=== PATIENT | male | born 1970 | race American Indian/Alaskan Native ===

== ENCOUNTER 2017-08-17 12:00 | Emergency (ER) | payer MEDICAID, OTHER ==
[2017-08-17] MEDS ORDERED: Nitroglycerin 0.4 MG Tab.SL SL PRN (12:29)
[2017-08-17] MEDS ORDERED: Sodium Chloride 0.9% 10 ML Syringe FLUSH PRN (12:29)
[2017-08-17 12:51] VITALS: BP 106/70
[2017-08-17 13:11] LABS: ANION GAP 12.9; CHLORIDE,CL 105 mmol/L (101-111); SODIUM,NA 137 mmol/L (135-145)
--- NOTE | 2017-08-17 13:35 | EDM.PDOC ---
ED HPI GENERAL MEDICAL PROBLEM - General Chief Complaint: Upper Extremity Injury/Pain Stated Complaint: CHEST PAINS, CRAMPS,DIZZY [id number] Time Seen by Provider: 08/17/17 12:30 - History of Present Illness INITIAL COMMENTS - FREE TEXT/NARRATIVE: Cody is a 46-year-old man with a history of coronary artery disease and angina , who presents with 2 concerns today. First, he states that since about 6:00 this morning, he has been having some occasional pain in his left chest. He states it does not seem to necessarily be worse with movement or exertion. Cody has had significant coronary disease, and has had numerous angiograms in the past. He does have nitroglycerin at home, but was coming into the ER for his shoulder anyway and so wants to be seen for this. He has had no recent fevers or chills, no cough. Second problem today, Cody had rotator cuff repair to his left shoulder 3 weeks ago. He states that he has been advanced to physical therapy at this point, but over the last few days is now having severe pain with his shoulder. He states it is very difficult to move his shoulder at this point, he has been trying to keep it against his side if possible Left Shoulder Pain Score (Numeric/FACES): 5 - Related Data Allergies Allergy/AdvReac Type Severity Reaction Status Date / Time No Known Allergies Allergy Verified 08/17/17 12:08 Home Meds: Home Meds Aspirin [Radha Chewable] 81 mg PO DAILY 11/07/13 [History] Atenolol [Tenormin] 25 mg PO DAILY 11/07/13 [History] Lisinopril 40 mg PO DAILY 11/07/13 [History] Nitroglycerin [Nitrostat] 0.4 mg SL ASDIRECTED PRN 11/07/13 [History] atorvaSTATin [Lipitor] 80 mg PO BEDTIME 11/07/13 [History] Hydrocodone/Acetaminophen [Hydrocodon-Acetaminophn 10-325] 0.5 - 1 tab PO Q8H PRN 3 Days #9 tablet 08/17/17 [Rx] Past Medical History Cardiovascular History: Reports: High Cholesterol, Hypertension Endocrine/Metabolic History: Reports: Diabetes, Type II - Past Surgical History Cardiovascular Surgical History: Reports: Coronary Artery Stent Musculoskeletal Surgical History: Reports: Shoulder Surgery Social & Family History - Tobacco Use Smoking Status *Q: Never Smoker Second Hand Smoke Exposure: No - Recreational Drug Use Recreational Drug Use: Yes Recreational Drug Type: Reports: Marijuana/Hashish Recreational Drug Use Frequency: Weekly Review of Systems - Review of Systems Review Of Systems: ROS reveals no pertinent complaints other than HPI. ED EXAM, GENERAL - Physical Exam Exam: See Below Free Text/Narrative:: General: Cody is a pleasant 46-year-old man in no acute distress Oropharynx: Clear, no exudates or petechia noted Neck: Supple, no lymphadenopathy Lungs: Clear to auscultation throughout Heart: Regular rate and rhythm, no murmurs, rubs or gallops Left shoulder: He has significant pain over his deltoid on that shoulder. I did not do much manipulation of his shoulder because of his recent surgery. I do not notice any significant erythema or bruising over that shoulder Course - Vital Signs Last Recorded V/S: Last Vital Signs Temp 36.9 C 08/17/17 12:09 Pulse 67 08/17/17 12:09 Resp 16 08/17/17 12:09 BP 106/70 08/17/17 12:48 Pulse Ox 97 08/17/17 12:09 - Orders/Labs/Meds Orders: Active Orders 24 hr Category Date Time Status Cardiac Monitoring [RC] . DIRECTED Care 08/17/17 12:29 Active EKG Documentation Completion [RC] STAT Care 08/17/17 12:29 Active Peripheral IV Care [RC] . DIRECTED Care 08/17/17 12:30 Active Nitroglycerin [Nitrostat] Med 08/17/17 12:29 Active 0.4 mg SL Q5M PRN Sodium Chloride 0.9% [Saline Flush] Med 08/17/17 12:29 Active 10 ml FLUSH ASDIRECTED PRN Peripheral IV Insertion Adult [OM.PC] Stat Oth 08/17/17 12:29 Ordered Medication Orders Nitroglycerin (Nitrostat) 0.4 mg SL Q5M PRN PRN Reason: Chest Pain Stop: 08/18/17 12:30 Last Admin: 08/17/17 12:48 Dose: 0.4 mg Sodium Chloride (Saline Flush) 10 ml FLUSH ASDIRECTED PRN PRN Reason: Keep Vein Open Last Admin: 08/17/17 12:46 Dose: 10 ml Labs: Laboratory Tests 08/17/17 08/17/17 Range/Units 12:46 12:46 WBC 8.2 (5.0-10.0) 10^3/uL RBC 5.25 (4.6-6.2) 10^6/uL Hgb 14.8 D (14.0-18.0) g/dL Hct 44.7 (40.0-54.0) % MCV 85.1 (80-100) fL MCH 28.2 (27.0-34.0) pg MCHC 33.1 (33.0-35.0) g/dL Plt Count 269 (150-450) 10^3/uL Neut % (Auto) 63.8 (42.2-75.2) % Lymph % (Auto) 23.2 (20.5-50.1) % [place] % (Auto) 9.9 H (2-8) % Eos % (Auto) 2.9 (1.0-3.0) % Baso % (Auto) 0.2 (0.0-1.0) % Sodium 137 (135-145) mmol/L Potassium 3.9 (3.6-5.0) mmol/L Chloride 105 (101-111) mmol/L Carbon Dioxide 23.0 (21.0-31.0) mmol/L Anion Gap 12.9 BUN 13 (7-18) mg/dL Creatinine 0.9 (0.6-1.3) mg/dL Est Cr Clr Drug Dosing 99.22 mL/min Estimated GFR (MDRD) > 60 BUN/Creatinine Ratio 14.44 Glucose 98 (74-105) mg/dL Calcium 9.3 (8.4-10.2) mg/dl Total Bilirubin 0.7 (0.2-1.0) mg/dL AST 22 (10-42) IU/L ALT 23 (10-60) IU/L Alkaline Phosphatase 67 (42-121) IU/L Troponin I < 0.02 (0.00-0.02) ng/ml Total Protein 7.9 (6.7-8.2) g/dl Albumin 4.1 (3.2-5.5) g/dl Globulin 3.8 Albumin/Globulin Ratio 1.08 Meds: Medications Generic Name Dose Route Start Last Admin Trade Name Freq PRN Reason Stop Dose Admin Nitroglycerin 0.4 mg 08/17/17 12:29 08/17/17 12:48 Nitrostat SL 08/18/17 12:30 0.4 mg Q5M PRN Administration Chest Pain Sodium Chloride 10 ml 08/17/17 12:29 08/17/17 12:46 Saline Flush FLUSH 10 ml ASDIRECTED PRN Administration Keep Vein Open Departure - Departure Time of Disposition: 13:34 Disposition: Home, Self-Care 01 Clinical Impression: Stable angina pectoris Shoulder pain, acute Qualifiers: Laterality: left Qualified Code(s): M25.512 - Pain in left shoulder - Discharge Information Prescriptions: Hydrocodone/Acetaminophen [Hydrocodon-Acetaminophn 10-325] 0.5 - 1 tab PO Q8H PRN 3 Days #9 tablet PRN Reason: Pain Instructions: Angina Pectoris, [id number] Forms: ED Department Discharge Additional Instructions: Call both physical therapy and your surgeon tomorrow to let them know you are having increased pain - My Orders Last 24 Hours: My Active Orders 08/17/17 12:29 Cardiac Monitoring [RC] . DIRECTED EKG Documentation Completion [RC] STAT Nitroglycerin [Nitrostat] 0.4 mg SL Q5M PRN Sodium Chloride 0.9% [Saline Flush] 10 ml FLUSH ASDIRECTED PRN Peripheral IV Insertion Adult [OM.PC] Stat 08/17/17 12:30 Peripheral IV Care [RC] . DIRECTED - Assessment/Plan Last 24 Hours: My Active Orders 08/17/17 12:29 Cardiac Monitoring [RC] . DIRECTED EKG Documentation Completion [RC] STAT Nitroglycerin [Nitrostat] 0.4 mg SL Q5M PRN Sodium Chloride 0.9% [Saline Flush] 10 ml FLUSH ASDIRECTED PRN Peripheral IV Insertion Adult [OM.PC] Stat 08/17/17 12:30 Peripheral IV Care [RC] . DIRECTED
--- NOTE | 2017-08-18 11:20 | EKG ---
08/17/2017- JAYLA MUSE - This is a standard 12-lead EKG showing normal sinus rhythm with a ventricular rate 62 beats per minute. Normal MI interval, QRS duration. Normal axis. No significant ST-T changes. Normal EKG. [facility] /[id number]
== END 2017-08-17 13:36 | disposition home or self-care (01) ==
LOC: DL.ED 12:00
DX: I20.9 Angina pectoris, unspecified (principal); M25.512 Pain in left shoulder; E11.9 Type 2 diabetes mellitus without complications; E78.00 Pure hypercholesterolemia, unspecified; I10 Essential (primary) hypertension; Z79.82 Long term (current) use of aspirin; Z79.899 Other long term (current) drug therapy
CPT/HCPCS: 36415; 80053; 84484; 85025; 93005; 99285; A9270; J7050

== ENCOUNTER 2021-02-25 17:08 | Emergency (ER) | payer MEDICAID, OTHER ==
[2021-02-25] MEDS ORDERED: Lidocaine 2% with EPINEPHrine 1:200,000 20 ML SDV INJECT ONE (17:38)
[2021-02-25] MEDS ORDERED: Lidocaine 1% with EPINEPHrine 1:100,000 20 ML MDV INJECT ONE (17:46)
--- NOTE | 2021-02-25 17:58 | EDM.PDOC ---
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 The pt was struck with the screwdriver in the head and sustained a laceration to the forehead. no LOC. No physical complaints other than the lac. Neg blood thinners. Tetanus is up to date. Onset: Today, Sudden Duration: Hour(s): Face/Facial Pain Score (Numeric/FACES): 3 - Related Data Allergies Allergy/AdvReac Type Severity Reaction Status Date / Time No Known Allergies Allergy Verified 02/25/21 17:41 Home Meds: Home Meds Aspirin [Radha Chewable] 81 mg PO DAILY 11/07/13 [History] Atenolol [Tenormin] 25 mg PO DAILY 11/07/13 [History] Lisinopril 40 mg PO DAILY 11/07/13 [History] Nitroglycerin [Nitrostat] 0.4 mg SL ASDIRECTED PRN 11/07/13 [History] atorvaSTATin [Lipitor] 80 mg PO BEDTIME 11/07/13 [History] Hydrocodone/Acetaminophen [Hydrocodone-Acetamin 10-325 mg] 0.5 - 1 tab PO Q8H PRN 3 Days #9 tablet 08/17/17 [Rx] Past Medical History Cardiovascular History: Reports: High Cholesterol, Hypertension Endocrine/Metabolic History: Reports: Diabetes, Type II - Past Surgical History Cardiovascular Surgical History: Reports: Coronary Artery Stent Musculoskeletal Surgical History: Reports: Shoulder Surgery Social & Family History - Tobacco Use Tobacco Use Status *Q: Never Tobacco User Second Hand Smoke Exposure: No - Caffeine Use Caffeine Use: Reports: Coffee - Recreational Drug Use Recreational Drug Use: Yes Recreational Drug Type: Reports: Marijuana/Hashish ED ROS GENERAL - Review of Systems Review Of Systems: Comprehensive ROS is negative, except as noted in HPI. ED EXAM, SKIN/RASH Exam: See Below Exam Limited By: No Limitations General Appearance: Alert, No Apparent Distress Head: Other (7 cm lac to mid forhead running vertically) Respiratory/Chest: No Respiratory Distress, Lungs Clear, Normal Breath Sounds, No Accessory Muscle Use, Chest Non-Tender Cardiovascular: Normal Peripheral Pulses, Regular Rate, Rhythm, No Edema, No Gallop, No JVD, No Murmur, No Rub ED SKIN PROCEDURES - Laceration/Wound Repair Anterior Forehead Appearance: Subcutaneous Local Anesthesia - Lidocaine (Xylocaine): 1% with EPI Local Anesthetic Volume: 5cc Skin Prep: Saline Exploration/Debridement/Repair: Wound Explored Closed with: Sutures Lac/Wound length In cm: 8 Suture Size: 4-0 # of Sutures: 12 Suture Type: Interrupted Sterile Dressing Applied: Nurse Course - Vital Signs Last Recorded V/S: Last Vital Signs Temp 97.5 F 02/25/21 17:40 Pulse 105 H 02/25/21 17:40 Resp 18 02/25/21 17:40 BP 161/108 H 02/25/21 17:40 Pulse Ox 97 02/25/21 17:40 - Orders/Labs/Meds Meds: Medications Discontinued Medications Generic Name Dose Route Start Last Admin Trade Name Ney PRN Reason Stop Dose Admin Lidocaine/Epinephrine 20 ml 02/25/21 17:38 02/25/21 17:53 Lidocaine 2% With Epinephrine 1:200,000 20 Ml Sdv INJECT 02/25/21 17:39 Not Given ONETIME ONE Lidocaine/Epinephrine 20 ml 02/25/21 17:46 02/25/21 17:53 Lidocaine 1% With Epinephrine 1:100,000 20 Ml Mdv INJECT 02/25/21 17:47 20 ml ONETIME ONE Administration Departure - Departure Time of Disposition: 18:36 Disposition: Home, Self-Care 01 Condition: Good Clinical Impression: Laceration of forehead Qualifiers: Encounter type: initial encounter Qualified Code(s): S01.81XA - Laceration without foreign body of other part of head, initial encounter - Discharge Information *PRESCRIPTION DRUG MONITORING PROGRAM REVIEWED*: Not Applicable *COPY OF PRESCRIPTION DRUG MONITORING REPORT IN PATIENT FRANK: Not Applicable Instructions: Laceration Care, Adult Forms: ED Department Discharge Additional Instructions: Keep wound clean and dry for 24 hours. Use triple antibiotic ointment or bacitracin on the wound until the sutures are removed. Keep stitches in for 10- 14 days. If any new symptoms or concerns develop contact your primary care facility or return to the ER. Sepsis Event Note (ED) - Evaluation Sepsis Screening Result: No Definite Risk - Focused Exam Vital Signs: Vital Signs Temp Pulse Resp BP Pulse Ox 02/25/21 17:40 97.5 F 105 H 18 161/108 H 97
[2021-02-25] MEDS ORDERED: Bacitracin Oint 1 GM U/D Packet TOP ONE (18:46)
[2021-02-25 18:54] VITALS: BP 139/102; PULSE 104
== END 2021-02-25 18:57 | disposition home or self-care (01) ==
LOC: DL.ED 17:08
DX: S01.81XA Laceration without foreign body of other part of head, initial encounter (principal); E78.00 Pure hypercholesterolemia, unspecified; I10 Essential (primary) hypertension; E11.9 Type 2 diabetes mellitus without complications; Z79.82 Long term (current) use of aspirin; Z79.899 Other long term (current) drug therapy; W22.8XXA Striking against or struck by other objects, initial encounter
CPT/HCPCS: 12015; 99282-25

== ENCOUNTER 2021-11-12 14:34 | Emergency (ER) | payer MEDICAID ==
[2021-11-12] MEDS ORDERED: Ondansetron 4 MG/2 ML SDV IVPUSH ONE (15:12)
[2021-11-12] MEDS ORDERED: HYDROmorphone 1 MG/ML Syringe IVPUSH ONE (15:12)
[2021-11-12 15:51] LABS: ANION GAP 22.2 mEq/L (7-13)
[2021-11-12 16:00] LABS: CORONAVIRUS COVID-19 NAA NEGATIVE (NEGATIVE)
[2021-11-12] MEDS ORDERED: Lactated Ringers 1,000 ML IV ONE (16:01)
[2021-11-12] MEDS ORDERED: Potassium Chloride 20 MEQ in Premix Bag 1 BAG IV ONE (16:10)
[2021-11-12] MEDS ORDERED: Sodium Chloride 0.9% 1,000 ML IV ONE (17:38)
[2021-11-12] MEDS ORDERED: Lidocaine 1% 30 ML SDV INJECT ONE (18:56)
[2021-11-12 19:06] VITALS: BP 147/88; PULSE 64
== END 2021-11-12 19:45 | disposition home or self-care (01) ==
LOC: DL.ED 14:34
DX: E86.0 Dehydration (principal); E87.6 Hypokalemia; R10.822 Left upper quadrant rebound abdominal tenderness; E78.00 Pure hypercholesterolemia, unspecified; I10 Essential (primary) hypertension; E11.9 Type 2 diabetes mellitus without complications; Z79.82 Long term (current) use of aspirin; Z79.899 Other long term (current) drug therapy; Z95.5 Presence of coronary angioplasty implant and graft; Z20.822 Contact with and (suspected) exposure to COVID-19
CPT/HCPCS: 0240U; 36415; 80053; 82150; 83605; 83690; 83735; 84484; 85025; 86140; 93005; 96365; 96366; 96375; 99285; J1170; J2405; J3480; J7030; J7120

== ENCOUNTER 2024-12-01 12:53 | Emergency (ER) | payer MEDICAID, OTHER ==
[2024-12-01 13:18] LABS: BASOPHILS PERCENT AUTO 0.2 % (0.0-1.0); EOSINOPHILS PERCENT AUTO 6.6 % (1.0-3.0); LYMPHOCYTES PERCENT AUTO 37.5 % (20.5-50.1); MONOCYTES PERCENT AUTO 15.7 % (2-8); NEUTROPHILS PERCENT AUTO 40.0 % (42.2-75.2); PLATELET COUNT,PLT 249 10^3/uL (150-450); RED BLOOD CELL COUNT 5.05 10^6/uL (4.6-6.2); WHITE BLOOD CELL COUNT,WBC 6.1 10^3/uL (5.0-10.0)
[2024-12-01] MEDS: Sodium Chloride 0.9% 10 ML Syringe FLUSH PRN (13:30)
[2024-12-01 13:31] LABS: A/G RATIO 0.7; ALANINE AMINOTRANSFERASE,ALT 31.0 U/L (16-63); ASPARTATE AMNIOTRANSFERASE,AST 22.0 U/L (15-37); BILIRUBIN TOTAL 0.5 mg/dL (0.2-1.0); BLOOD UREA NITROGEN,BUN 26.0 mg/dL (7-18); CARBON DIOXIDE,CO2 24.0 mmol/L (21-32); CHLORIDE,CL 106.0 mmol/L (98-107); CREATININE 1.21 mg/dL (0.70-1.30); EST CRCL DRUG DOSING (CG) 67.52 mL/min; GLUCOSE RANDOM 104.0 mg/dL (70-99); POTASSIUM,K 3.8 mmol/L (3.5-5.1); PROTEIN TOTAL,TP 8.2 g/dL (6.4-8.2); SODIUM,NA 141.0 mmol/L (136-145)
[2024-12-01 13:32] LABS: ESTIMATED GFR 71.0 mL/min (>=60)
[2024-12-01 16:22] VITALS: BP 114/75; PULSE 47
== END 2024-12-01 17:06 | disposition home or self-care (01) ==
LOC: DL.ED 12:53
DX: R07.89 Other chest pain (principal); E78.00 Pure hypercholesterolemia, unspecified; E11.9 Type 2 diabetes mellitus without complications; I10 Essential (primary) hypertension; Z79.82 Long term (current) use of aspirin; Z79.899 Other long term (current) drug therapy; Z90.49 Acquired absence of other specified parts of digestive tract; Z87.891 Personal history of nicotine dependence
CPT/HCPCS: 36415; 71045; 80053; 83735; 84484; 85025; 85379; 93005; 93010; 99284; 99285; A9270-GY